=== PATIENT | female | born 1930 | race Caucasian/White ===

== ENCOUNTER 2018-12-27 15:27 | Emergency (ER) | payer OTHER ==
[~2018-12-27] VITALS: Ht 152.4 cm; Wt 39.9 kg
[2018-12-27] MEDS ORDERED: TIROSINT25 MCG (16:08)
[2018-12-27] MEDS ORDERED: FUROSEMIDE20 MG (16:08)
[2018-12-27] MEDS ORDERED: CARVEDILOL12.5 MG (16:09)
[2018-12-27] MEDS ORDERED: ELIQUIS2.5 MG (16:09)
[2018-12-27] MEDS ORDERED: ZANTAC150 MG (16:09)
[2018-12-27] MEDS ORDERED: ISOSORBIDE MONO60 MG (16:10)
[2018-12-27] MEDS ORDERED: PROTONIX40 MG (16:10)
[2018-12-27] MEDS ORDERED: ASPIRIN81 MG (16:11)
== END 2018-12-27 22:53 | disposition home or self-care (01) ==
LOC: ER 15:27
DX: R06.02 Shortness of breath (principal)